=== PATIENT | female | born 1980 | race Caucasian/White ===

== ENCOUNTER 2018-02-08 11:31 | Emergency (ER) | payer OTHER ==
[~2018-02-08] VITALS: Ht 154.9 cm; Wt 79.4 kg
[2018-02-08 11:41] VITALS: BP 123/82
[2018-02-08 12:22] LABS: ABSOLUTE BASOPHIL COUNT 0 /CUMM (0.0-0.2); ABSOLUTE EOSINOPHIL COUNT 0.1 /CUMM (0.0-0.7); ABSOLUTE GRANULOCYTE CT 5.1 /CUMM (1.4-6.5); ABSOLUTE LYMPH COUNT 1.9 /CUMM (1.2-3.4); ABSOLUTE MONOCYTE COUNT 0.6 /CUMM (0.10-0.60); BASOPHIL % 0.5 % (0.0-2.0); EOSINOPHIL % 1.1 % (0-5); GRANULOCYTE % 66.8 % (42.2-75.2); HEMATOCRIT 45.7 % (37-47); MEAN CORPUSCULAR HGB 30.6 PG (27.0-31.0); MEAN CORPUSCULAR HGB CONC 33.4 G/DL (33.0-37.0); MEAN CORPUSCULAR VOLUME 91.5 FL (81.0-99.0); MEAN PLATELET VOLUME 7.9 FL (7.4-10.4); PLATELET COUNT 349 /CUMM (130-400); RBC DISTRIBUTION WIDTH 13.7 % (11.5-14.5); RED BLOOD CELL CT 4.99 /CUMM (4.20-5.40); WHITE BLOOD CELL COUNT 7.7 /CUMM (4.8-10.8)
--- NOTE | 2018-02-08 12:23 | ED GI/GU/ABDOMINAL COMPLAINT ---
History of Present Illness General Chief Complaint: Nausea, Vomiting, Diarrhea Stated Complaint: NVD Source: patient, family Exam Limitations: no limitations Vital Signs & Intake/Output Vital Signs & Intake/Output Vital Signs Date Time Temp Pulse Resp B/P B/P Pulse O2 O2 Flow FiO2 Mean Ox Delivery Rate 02/08 1141 98.6 88 18 123/82 98 Room Air Allergies Coded Allergies: No Known Allergies (02/08/18) Reconcile Medications Hydrocortisone 2.5 % CREAM..G. 1 ANALISA TOP BID HEMORRHOID apply to affected area(s) Lidocaine/Prilocaine (Lidocaine-Prilocaine Cream) 2.5 %-2.5 % CREAM..G. 1 ANALISA TOP AD HEMORRHOID Loperamide HCl (Loperamide) 2 MG TABLET 1 TAB PO Q4 DIARRHEA Triage Note: 37 YO FEMALE TO TRIAGE FOR EVAL OF +D X3 WEEKS. REPORTS SHE NOW NOTICED A WAXY COATING AROUND THE STOOL AND HAS DEVELOPLED HEMMROIDS. DENIES NV. REPORTS LOWER ABD CRMAPING. DENIES RECENT TRAVEL OR RECENT ANTIBIOTICS USE. Triage Nurses Notes Reviewed? yes ? N Is pt currently ? No HPI: 37 y/o female with PMHx of cervical cancer presents the to the ED with complains of diarrhea for the past three weeks. Pt states every stool she has had within the last 3 weeks has been a watery diarrhea that floats to the top of the bowl. Pt is also having associated abdominal pain before and after defecation, although she does mention some relief after defecation. Pt has had an external hemorrhoid x 3 days of which she has been using sitz baths to relieve some of the pain. Pt denies being on any current medications. Associated symptoms are intermittent chills, steatorrhea, and low grade fever x 5 days. Pt denies hematochezia, SOB, CP, N/V, dysuria, polyuria, or any changes in diet. Past History Travel History Traveled to [place] past 21 day No Medical History Any Pertinent Medical History? see below for history Neurological: NONE EENT: NONE Cardiovascular: NONE Respiratory: NONE Gastrointestinal: NONE Hepatic: NONE Renal: NONE Musculoskeletal: NONE Psychiatric: NONE Endocrine: NONE Blood Disorders: NONE Cancer(s): NONE ESTHETICIAN/SKIN THERAPIST/Reproductive: TUBAL LIGATION Surgical History Surgical History: non-contributory Psychosocial History What is your primary language Citizen Of [place] Tobacco Use: Current Daily Use Daily Tobacco Use Amount/Type: => 5 Cigarettes daily Family History Hx Contributory? No Review of Systems Review of Systems Constitutional: Reports: no symptoms. EENTM: Reports: no symptoms. Respiratory: Reports: no symptoms. Cardiovascular: Reports: no symptoms. GI: Reports: no symptoms. Genitourinary: Reports: no symptoms. Musculoskeletal: Reports: no symptoms. Skin: Reports: no symptoms. Neurological/Psychological: Reports: no symptoms. Hematologic/Endocrine: Reports: no symptoms. Immunologic/Allergic: Reports: no symptoms. All Other Systems: Reviewed and Negative Physical Exam Physical Exam General Appearance: well developed/nourished, no apparent distress Head: atraumatic, normal appearance Eyes: Bilateral: normal appearance. Ears, Nose, Throat, Mouth: hearing grossly normal, moist mucous membrane Neck: supple, full range of motion Respiratory: normal breath sounds, no respiratory distress Cardiovascular: regular rate/rhythm Gastrointestinal: soft, non-tender Rectal: hemmorrhoids Back: normal inspection, normal range of motion Extremities: normal range of motion Neurologic/Psych: awake, alert, oriented x 3, normal mood/affect Skin: intact, normal color, warm/dry Core Measures ACS in differential dx? No Sepsis Present: No Sepsis Focused Exam Completed? No Progress Differential Diagnosis: appendicitis, biliary colic, cholecystitis, diverticulitis, gastritis, inflamm bowel dis, peptic ulcer, PUD/GERD Plan of Care: Orders Procedure Date/time Status CULTURE,STOOL 02/08 1146 Active C.DIFFICILE 02/08 1146 Active HUMAN BETA HCG SCREEN 02/08 1146 Complete COMPREHENSIVE METABOLIC PANEL 02/08 1146 Complete CBC WITHOUT DIFFERENTIAL 02/08 1146 Complete Laboratory Tests 02/08/18 1202: Anion Gap 12, Estimated GFR > 60, BUN/Creatinine Ratio 13.8, Glucose 95, Calcium 9.8, Total Bilirubin 0.3, AST 18, ALT 27, Alkaline Phosphatase 48, Total Protein 7.4, Albumin 4.4, Globulin 3.0, Albumin/Globulin Ratio 1.5, Total Beta HCG NEGATIVE, CBC w Diff NO MAN DIFF REQ, RBC 4.99, MCV 91.5, MCH 30.6, MCHC 33.4, RDW 13.7, MPV 7.9, Gran % 66.8, Lymphocytes % 24.4, Monocytes % 7.2, Eosinophils % 1.1, Basophils % 0.5, Absolute Granulocytes 5.1, Absolute Lymphocytes 1.9, Absolute Monocytes 0.6, Absolute Eosinophils 0.1, Absolute Basophils 0 Microbiology 02/08 1146 STOOL: Clostridium difficile Toxin A & B - ORD 02/08 1146 STOOL: Stool Culture - ORD Asymptomatic here, no diarrhea. Labs normal. No infectious symptoms. Will require outpatient GI workup. Will send home with GI and colorectal surgery follow up and stool collection container for culture. Initial ED EKG: none Departure Departure Disposition: HOME OR SELF CARE Condition: Stable Clinical Impression Primary Impression: Chronic diarrhea Secondary Impressions: External hemorrhoid Referrals: Latrice QUIROZ,Kwame Magdaleno MD,Sterling Rae Patient Has No Primary Care Dr (PCP/Family) Carolyn Thomas MD Additional Instructions: Follow up with GI and PCP. Continue using Sitz baths. You can take Loperamide to slow the diarrhea. Drink plenty of water, try to eat high fiber foods. If you notice any new or worsening symptoms, return to ER. Departure Forms: Customer Survey General Discharge Information Prescriptions: Current Visit Scripts Loperamide HCl (Loperamide) 1 TAB PO Q4 #30 TAB Hydrocortisone 1 ANALISA TOP BID #60 GM apply to affected area(s) Lidocaine/Prilocaine (Lidocaine-Prilocaine Cream) 1 ANALISA TOP AD #30 GM
[2018-02-08] MEDS ORDERED: HYDROCORTISO453.6 G2 TOP (13:06)
[2018-02-08] MEDS ORDERED: LIDOCAINE-PRILO30 GM TOP (13:06)
[2018-02-08] MEDS ORDERED: LOPERAMIDE2 M1 PO (13:06)
== END 2018-02-08 13:20 ==
LOC: ERH 11:31
PROVIDERS: Physician Assistant
DX: K64.4 Residual hemorrhoidal skin tags (principal); R19.7 Diarrhea, unspecified
CPT/HCPCS: 87015; 87045; 87899; 87899-59